=== PATIENT | male | born 2005 | race Caucasian/White ===

== ENCOUNTER 2025-06-09 03:35 | Emergency (ER) | payer SELFPAY ==
[2025-06-09 03:37] VITALS: BP 150/91; PULSE 90; RESP 20; TEMP 36.4; O2SAT 96
--- NOTE | 2025-06-09 03:49 | ED_ITS ---
HPI - Alcohol General Chief Complaint: Alcohol Stated Complaint: found laying in grass drunk Source: patient, EMS, RN notes reviewed and other (Friends) Mode of arrival: EMS Limitations: intoxication History of Present Illness HPI narrative: Patient presents after being found lying down on the grass by police department. He had an episode of emesis upon arrival to the emergency department Friends arrive and note that they were celebrating his 20nd birthday. They started drinking at 2:00 p.m. at which point he had 2 beers and a shot. They started bar hopping and he had 2-3 beers and a shot or 2 at each of 3 locations. Patient is alert to self only. He can recognize that he is in the hospital. He denies any pain including no headache or abdominal pain. He denies being nauseated but states he puked. Related Data Allergies Allergy/AdvReac Type Severity Reaction Status Date / Time No Known Allergies Allergy Verified 06/09/25 04:32 Exam 2 Narrative: GENERAL: Well-appearing, well-nourished, and in no acute distress. HEAD: Normocephalic, atraumatic. EYES: Non injected, non icteric ENT: Nares clear, no rhinorrhea or epistaxis. Gross auditory acuity intact. NECK: Supple. No meningismus. CHEST: Speaking in full sentences. No respiratory distress. HEART: Regular rate and rhythm. . ABDOMEN: Soft, nondistended. EXTREMITIES: Normal range of motion. No lower extremity edema. SKIN: Warm, dry, no rash. NEURO: No focal deficits. Alert and oriented to self. Following commands. Slurred speech PSYCH: Congruent mood and affect. Course Vital Signs Vital signs: Vital Signs Temperature 97.6 F 06/09/25 03:37 Pulse Rate 90 06/09/25 03:37 Respiratory Rate 20 06/09/25 03:37 Blood Pressure 150/91 H 06/09/25 03:37 Pulse Oximetry 96 06/09/25 03:37 Oxygen Delivery Room Air 06/09/25 03:37 Temperature 97.6 F 06/09/25 03:37 Pulse Rate 90 06/09/25 03:37 Respiratory Rate 20 06/09/25 03:37 Blood Pressure 150/91 H 06/09/25 03:37 Pulse Oximetry 96 06/09/25 03:37 Oxygen Delivery Room Air 06/09/25 03:37 MDM - Alcohol MDM Narrative Medical decision making narrative: Patient presents after being found lying down on the grass by police department. Patient has been celebrating his 20nd per day and has been consuming alcohol per friends. In the emergency department they are afebrile with VS notable for hypertension. Mild leukocytosis. Ethanol level 225. Suggests legally sober approximately 10:00. Will consider discharge earlier if clinically sober and/or safe disposition/transportation. Patient is reassessed at 5:10 a.m.. He is much more alert oriented. He is answering questions appropriately. He has been drinking water and tolerating that without emesis. He has a safe/sober ride. Stable for discharge. Differential Diagnosis Differential diagnosis: Likely hypomagnesemia, alcohol intoxication and alcohol ketoacidosis Lab Data Attestation: I reviewed the patient's lab results. 06/09/25 04:07 06/09/25 04:07 Labs: Lab Results 06/09/25 Range/Units 04:07 WBC 11.6 H (4.5-10.0) K/mm3 RBC 5.10 (4.6-6.20) M/mm3 Hgb 14.9 (14.0-18.0) g/dL Hct 43.5 (42.0-52.0) % MCV 85.3 (80-100) fl MCH 29.2 (26-34) pg MCHC 34.3 (32-36) g/dl RDW 13.0 (11.5-14.5) % Plt Count 340 (150-375) k/mm3 MPV 9.8 (7.4-10.4) fl Immature Gran % (Auto) 0.3 (0-0.5) % Neut % (Auto) 73.4 H (45.5-73.1) % Lymph % (Auto) 17.8 L (18.3-44.2) % [place] % (Auto) 6.9 (2.6-8.5) % Eos % (Auto) 0.9 (0-4.4) % Baso % (Auto) 0.7 (0.2-1.2) % Lymph # (Auto) 2.07 (0.9-3.2) K/mm3 [place] # (Auto) 0.8 H (0.1-0.6) K/mm3 Eos # (Auto) 0.1 (0-0.3) K/mm3 Baso # (Auto) 0.1 (0.0-0.1) K/mm3 Abs Immat Gran (auto) 0.04 H (0.00-0.031) K/mm3 Absolute Neuts (auto) 8.5 H (1.3-6.7) K/mm3 Absolute Nucleated RBC 0.000 (0.0-0.012) K/mm3 Nucleated RBC % 0.0 (0.0-0.2) % Sodium 139 (137-145) mmol/L Potassium 4.1 (3.4-5.0) mmol/L Chloride 109 H (98-107) mmol/L Carbon Dioxide 21 L (22-30) mmol/L Anion Gap 9 (4-12) mmol/L BUN 14 (9-20) mg/dL Creatinine 1.11 (0.7-1.3) mg/dL Estim Creat Clear Calc 106 ml/min Estimated GFR > 60 (59 - ) Glucose 128 H (65-110) mg/dL Calcium 9.2 (8.4-10.2) mg/dL Magnesium 2.1 (1.6-2.3) mg/dL Total Bilirubin 0.3 (0.2-1.3) mg/dL AST 35 (17-59) U/L ALT 31 (6-50) U/L Alkaline Phosphatase 76 (38-126) U/L Total Protein 8.1 (6.3-8.2) g/dL Albumin 4.8 (3.5-5.1) g/dL Lipase 32 (23-300) U/L Ethyl Alcohol 225 (<10) mg/dL Discharge Plan Discharge Clinical Impression: Alcohol intoxication with blood alcohol level 0.08-0.29 Patient Disposition: Home Condition: Stable Instructions: Antibiotic Form, Alcohol Intoxication (ED) Additional Instructions: Maintain your hydration. If you nausea and vomiting again, the oral disintegrating tablets of Zofran/ondansetron may help. Follow-up with primary care physician. If you do not have 1 the name of a doctor is listed below. Return to the emergency department with any new or worsening symptoms. Patient Language: Citizen Of [place] Prescriptions: New ondansetron 4 mg tablet,disintegrating 4 mg PO Q8H PRN (Reason: nausea and vomiting) Qty: 5 0RF Follow-up/Referrals: Merna Faria DO [Physician] - Stand Alone Forms: Work/School Release IP Time of Disposition: 05:14
[2025-06-09 04:14] LABS: Hematocrit 43.5 % (42.0-52.0); Hemoglobin 14.9 g/dL (14.0-18.0); Immature Granulocyte Percent A 0.3 % (0-0.5); Lymphocytes Absolute Auto 2.07 K/mm3 (0.9-3.2); Mean Corpuscular HGB Conc 34.3 g/dl (32-36); Mean Corpuscular Hemoglobin 29.2 pg (26-34); Mean Corpuscular Volume 85.3 fl (80-100); Nucleated Red Blood Cells Absolute Auto 0.000 K/mm3 (0.0-0.012); Nucleated Red Blood Cells Perc 0.0 % (0.0-0.2); Platelet Count Result 340 k/mm3 (150-375); Red Blood Count 5.10 M/mm3 (4.6-6.20); White Blood Count 11.6 K/mm3 (4.5-10.0)
[2025-06-09 04:33] LABS: Alanine Aminotransferase 31 U/L (6-50); Albumin Level 4.8 g/dL (3.5-5.1); Alkaline Phosphatase 76 U/L (38-126); Aspartate Amino Transferase 35 U/L (17-59); Bilirubin,Total 0.3 mg/dL (0.2-1.3); Blood Urea Nitrogen 14 mg/dL (9-20); Carbon Dioxide 21 mmol/L (22-30); Estimated CRCL calculation 106 ml/min; Estimated Glomerular Filt Rate > 60; Lipase 32 U/L (23-300); Magnesium 2.1 mg/dL (1.6-2.3); Sodium 139 mmol/L (137-145); Total Protein 8.1 g/dL (6.3-8.2)
[2025-06-09] MEDS: SODIUM CHLORIDE 0.9% IV 1,000 ML 999 ML IV CONT (04:34)
[2025-06-09] MEDS: ONDANSETRON INJ 4 MG/2 ML VIAL IV PUSH (04:34)
--- OUTSIDE RECORDS SUMMARY | 2025-06-09 04:56 | XMS_ITS | Data Portability ---
Author Organization [facility] - [facility] Address [address] [place] [address] Care Team Providers Care Bond Analyst Name Role Phone BARBER PATEL Primary Care Provider Assessment No assessment recorded. Plan of Treatment Reminders Order Date Submit Date Provider Last Modified By Organization Details Last Modified Time Details Appointments None recorded. Lab None recorded. Referral None recorded. Procedures None recorded. Surgeries None recorded. Imaging None recorded. Medication Orders Diluent for [employer] Live Virus Vaccine 021 021 [email or web address] 1 [id number], [address], [place], [phone], 16:53:59 Patient TargetsNo targets recorded. Patient InstructionsNo instructions recorded. Reason for Referral None Reported. Medical Equipment None Reported. Allergies No known drug allergies Medications Name Sig Start Date Stop Date Status Note LastModified by Organization Details LastModified Time hydrocodone 5 mg-acetamin ophen 325 mg tablet TAKE 1 TABLET BY MOUTH EVERY 4 TO 6 HOURS NEEDED FOR PAIN 06/10 completed Not Available Not Available Not Available dexamethaso ne 4 mg tablet 06/10 completed Not Available Not Available Not Available ibuprofen 600 mg tablet 06/10 completed Not Available Not Available Not Available chlorhexidi ne gluconate 0.12 % mouthwash 06/10 completed Not Available Not Available Not Available Diluent for Merck Live Virus Vaccine Inject 0.7 mL by subcutane ous route. 2020 active Not Available Not Available Not Avai lable Vitals Date Recorded Pain severity - 0-10 verbal numeric rating [Score] - Reported Body temperature Body weight Body mass index (BMI) [Percentile] Per age and sex Body mass index (BMI) Body height Heart rate Oxygen saturation Oxygen saturation in Arterial blood by Pulse oximetry Systolic And Diastolic Provider Name and Address Organization Details Last Updated DateTime 1 0 98 [degF] 02612.6 8 g 96 % 29.6 kg/m2 170.18 cm 66 /min 98 % 98 % 112/72 mm[Hg] Maurice Clemens [facility] 1 16:08:49 Social History None recorded. Functional Status None recorded. Mental Status None recorded. Family History Nothing Reported Notes:NOTE: Grandparent:HTN Medical History No medical history recorded. Immunizations Vaccine Type Date Status Note Provider Nam e and Address Organization Details Recorded Time Tdap 1 completed Not Available [facility] 06/20/2021 06:41:54 Meningococcal C/Y-HIB PRP 1 completed Not Available [facility] 06/20/2021 06:41:54 MMR 1 completed Lela graff [facility] 06/10/2021 16:52:56 Past Encounters Encounter ID Performer Location Encounter Start Date Encounter Closed Date Diagnosis/Indication Diagnosis SNOMED-CT Code Diagnosis ICD10 Code Diagnosis Note [id number] Juan Vergara MD [email or web address] [address] [place] [address] 06/10/2021 15:59:08 06/13/2021 03:45:46 Body mass index 25-29 - overweight 516540342 Z68.29 Immunization due 7210862 08 Z28.3 Health Concerns Section Related Observation LastModified by Organization Detai ls LastModified Time None Recorded Concern Status LastModified by Organization Details LastModified Time None Recorded Advance Directives Directive None Recorded Payers Insurance Date Sequence Insurance Name Policy Number Policy Padilla Covered Member ID Padilla Member ID Guarantor Name 06/13/2021 1 [facility] [facility] [id number] Kendall Lainez [id number] Kendall Lainez Notes Date Note Type Note Provider Name and Address Organization Details Recorded Time 06/10/2021 text/html ROS as noted in the HPI 16 y/o male presents to the clinic for immunizations for college. No complaints Juan Vergara MD [address], [place], [address], [facility] [place] 06/10/2021 19:41:23
[2025-06-09 05:05] LABS: Calcium 9.2 mg/dL (8.4-10.2); Glucose 128 mg/dL (65-110); Potassium 4.1 mmol/L (3.4-5.0)
[2025-06-09 05:14] LABS: Anion Gap 8 mmol/L (4-12); Chloride 110 mmol/L (98-107)
[2025-06-09 05:44] VITALS: BP 142/86; PULSE 92; RESP 15; O2SAT 99
[2025-06-09 05:45] VITALS: BP 142/86; PULSE 92; RESP 15; O2SAT 99
== END 2025-06-09 05:48 | disposition home or self-care (01) ==
PROVIDERS: Emergency Provider Student in an Organized Health Care Education/Training Program
DX: F10.129 Alcohol abuse with intoxication, unspecified (principal); Y90.7 Blood alcohol level of 200-239 mg/100 ml
CPT/HCPCS: 36415; 80053; 82077; 83690; 83735; 85025; 96361; 96374; 99284; J2405; J7030